=== PATIENT | female | born 1980 | race Caucasian/White ===

== ENCOUNTER → 2019-02-02 16:55 | Outpatient (CLI) | payer MEDICARE, OTHER, SELFPAY | PROVIDERS: Visit Provider Nurse Practitioner Obstetrics & Gynecology | DX: L02.411 Cutaneous abscess of right axilla (principal) | CPT/HCPCS: 87070; 87077; 87186; 87205 ==

== ENCOUNTER → 2020-08-01 11:20 | Outpatient (CLI) | payer MEDICARE, MEDICAID, SELFPAY ==
[2020-08-01 13:48] LABS: Basophils # 0.1 K/mm3 (0-0.2); Basophils % 0.8 % (0.1-2.0); Eosinophils # 0.2 K/mm3 (0.0-0.4); Hematocrit 39.7 % (37.0-47.0); Hemoglobin 12.9 g/dL (12.2-16.2); Lymphocytes % 39.2 % (10-50); Mean Corpuscular HGB Conc 32.6 g/dL (31.8-35.4); Mean Corpuscular Hemoglobin 29.8 pg (27.0-31.2); Mean Corpuscular Volume 91.3 fl (81-99); Monocytes # 0.4 K/mm3 (0.1-1.0); Monocytes % 5.4 % (1.7-9.3); Neutrophils # 3.9 K/mm3 (1.8-7.8); Neutrophils % 51.6 % (37.0-80.0); Platelet Count 400 K/mm3 (142-424); Red Blood Count 4.35 M/mm3 (4.20-5.40); Red Cell Distribution Width 13.4 % (11.5-17.5); White Blood Count 7.6 K/mm3 (4.8-10.8)
[2020-08-01 13:54] LABS: Chloride 104 mmol/L (98-107); Sodium 138 mmol/L (136-145)
[2020-08-01 13:55] LABS: Potassium 4.5 mmoL/L (3.5-5.1)
[2020-08-01 13:57] LABS: Alanine Aminotransferase 24 U/L (12-78); Albumin Level 4.3 g/dl (3.5-5.0); Albumin/Globulin Ratio 1.4 (1.1-1.8); Alkaline Phosphatase 71 U/L (38-126); Anion Gap 13.5 mEq/L (5-15); Aspartate Amino Transferase 29 U/L (14-36); Bilirubin,Total 0.2 mg/dl (0.2-1.3); Blood Urea Nitrogen 17 mg/dl (7-17); Carbon Dioxide 25 mmol/L (22.0-30.0); Cholesterol 286 mg/dl (140-200); Estimated Glomerular Filt Rate 93 ml/min (>60); GFR (African American) 113 ML/MIN (>60); Total Protein,Serum 7.3 g/dl (6.3-8.2); Triglycerides 185 mg/dl (30-150); VLDL Cholesterol 37 mg/dL (0-40)
[2020-08-01 13:58] LABS: Calcium 9.7 mg/dl (8.4-10.2); Chol/HDL Ratio 4.1 (1-3.5); Glucose 100 mg/dl (74-100); HDL Cholesterol 70 mg/dl (40-60)
[2020-08-01 14:09] LABS: Direct LDL Cholesterol 185.96 mg/dL (100-129)
[2020-08-01 14:28] LABS: Thyroid Stimulating Hormone 1.36 uIU/mL (0.465-4.68)
== END ==
PROVIDERS: Visit Provider Internal Medicine
DX: Z00.00 Encounter for general adult medical examination without abnormal findings (principal); Z79.899 Other long term (current) drug therapy
CPT/HCPCS: 36415; 80053; 80061; 84443; 85025

== ENCOUNTER → 2020-08-31 13:31 | Outpatient (CLI) | payer MEDICARE, MEDICAID, SELFPAY ==
--- NOTE | 2020-08-31 13:33 | MR_ITS ---
Addendum: Please see the previously dictated combined MRI brain with and without IV contrast and MR angiogram head without contrast combined report. PROCEDURE: MR HEAD/BRAIN WO/W CON CLINICAL INDICATION: HEADACHE COMPARISON: MR MR ANGIO HEAD WO CON from 08/31/2020 TECHNIQUE: Routine multiplanar multi echo sequences are performed without gadolinium enhancement. FINDINGS: MRI brain with and without IV contrast shows normal lateral ventricles. No white matter lesions. No abnormal signal in the brainstem jet cerebellum or cerebral hemispheres. No diffusion abnormality to suggest acute ischemia or infarction. No evidence of acute intracranial or subarachnoid hemorrhage. Orbits and paranasal sinuses are normal. Mastoid air cells are patent. Skull base is normal. Postcontrast images show no pathologic contrast enhancement or abnormally enhancing mass. MR Angiography of the head shows normal appearance of the vertebral arteries and basilar artery. Intracranial carotid arteries are normal. No evidence of a intracranial stenosis or aneurysm. Nothing to suggest a vasculitis or dissection. Posterior cerebral arteries and branches and anterior middle cerebral arteries and branches all fill normally. No evidence for large vessel occlusion. IMPRESSION: Normal MRI brain with and without IV contrast. Normal MR angiogram of the head. Dictated by: Dami Nino MD 08/31/2020 15:58 Dami Nino MD in [place] 08/31/2020 15:58
== END ==
PROVIDERS: PCP Internal Medicine; Visit Provider Psychiatry & Neurology Neurology
DX: R51.9 Headache, unspecified (principal)
CPT/HCPCS: 70544; 70553; A9576

== ENCOUNTER → 2020-09-04 11:14 | Outpatient (CLI) | payer MEDICARE, MEDICAID, SELFPAY ==
[2020-09-04 14:16] LABS: Chloride 102 mmol/L (98-107); Potassium 4.7 mmoL/L (3.5-5.1); Sodium 138 mmol/L (136-145)
[2020-09-04 14:18] LABS: Alanine Aminotransferase 16 U/L (12-78); Alkaline Phosphatase 84 U/L (38-126); Aspartate Amino Transferase 25 U/L (14-36); Bilirubin,Total 0.5 mg/dl (0.2-1.3); Blood Urea Nitrogen 13 mg/dl (7-17); Estimated Glomerular Filt Rate 93 ml/min (>60); GFR (African American) 113 ML/MIN (>60)
[2020-09-04 14:19] LABS: Albumin Level 4.4 g/dl (3.5-5.0); Albumin/Globulin Ratio 1.3 (1.1-1.8); Anion Gap 14.7 mEq/L (5-15); Calcium 9.1 mg/dl (8.4-10.2); Carbon Dioxide 26 mmol/L (22.0-30.0); Chol/HDL Ratio 4.4 (1-3.5); Cholesterol 265 mg/dl (140-200); Globulin 3.3 g/dL (1.3-3.2); Glucose 93 mg/dl (74-100); HDL Cholesterol 60 mg/dl (40-60); Total Protein,Serum 7.7 g/dl (6.3-8.2); Triglycerides 276 mg/dl (30-150); VLDL Cholesterol 55 mg/dL (0-40)
[2020-09-04 14:30] LABS: Direct LDL Cholesterol 166.63 mg/dL (100-129)
== END ==
PROVIDERS: Visit Provider Internal Medicine
DX: E78.5 Hyperlipidemia, unspecified (principal)
CPT/HCPCS: 36415; 80053; 80061